=== PATIENT | male | born 1940 | race Caucasian/White ===

== ENCOUNTER 2019-08-08 14:50 | Emergency (ER) | payer MEDICARE ==
[2019-08-08] MEDS ORDERED: KETOROLAC TROMETHAMINE 30MG/ML ONE (15:43)
[2019-08-08] MEDS ORDERED: DIAZEPAM 5 MG TABLET ONE (15:43)
== END 2019-08-08 17:53 | disposition home or self-care (01) ==
LOC: EDH 14:50
DX: M54.5 Low back pain (principal); D35.01 Benign neoplasm of right adrenal gland; F41.9 Anxiety disorder, unspecified; F32.9 Major depressive disorder, single episode, unspecified; Z88.8 Allergy status to other drugs, medicaments and biological substances; Z87.891 Personal history of nicotine dependence
CPT/HCPCS: 74176; 96372; 99284; J1885